=== PATIENT | female | born 1980 | race African-American/Black ===

== ENCOUNTER 2018-01-21 07:47 | Emergency (ER) | payer MEDICAID, OTHER ==
[~2018-01-21] VITALS: Ht 160 cm; Wt 108.4 kg
[2018-01-21 08:06] VITALS: BP 128/53
== END 2018-01-21 14:07 | disposition home or self-care (01) ==
LOC: ER 07:53
DX: L81.9 Disorder of pigmentation, unspecified (principal)

== ENCOUNTER 2021-11-24 21:08 | Emergency (ER) | payer MEDICAID ==
[~2021-11-24] VITALS: Ht 160 cm; Wt 105.0 kg
[2021-11-24 21:13] VITALS: BP 116/60
== END 2021-11-25 00:30 | disposition left against medical advice (07) ==
LOC: EDBD 21:08 → EDUNIT# 21:08 → ER 21:08
DX: R10.9 Unspecified abdominal pain (principal); R19.7 Diarrhea, unspecified; Z53.21 Procedure and treatment not carried out due to patient leaving prior to being seen by health care provider